=== PATIENT | female | born 1990 | race Caucasian/White ===

== ENCOUNTER 2017-03-21 17:38 | Emergency (ER) | payer OTHER ==
[2017-03-21 18:32] VITALS: BP 120/68; PULSE 80; RESP 18; TEMP 97.9
--- NOTE | 2017-03-21 19:10 | ED ---
Lower Extremity Injury HPI - General Chief Complaint: Extremity Injury, Lower Stated Complaint: hip pain Time Seen by Provider: 03/21/17 19:02 Source: patient, RN notes reviewed Mode of arrival: ambulatory - History of Present Illness Initial Comments: 26-year-old female presents emergency Department chief complaint low back pain, left hip pain. She states been present for 2 months seems to come and go. It is exacerbated by movement. Patient states that the pain sometimes radiates down her leg. Denies any paresthesias denies any bowel bladder incontinence or retention. States that she does do a large amount of exercising and she was doing some outdoor activities as we can which seemed exacerbated. She states that massage made it feel worse. Patient denies any dysuria or hematuria. - Related Data Previous Rx's Medication Instructions Recorded Cephalexin [Keflex] 500 mg PO Q12HR 7 Days 09/19/16 Acetaminophen-Codeine 300-30mg 1 tab PO Q4H PRN #20 tablet 03/21/17 [Tylenol #3] Cyclobenzaprine [Flexeril] 5 mg PO TID PRN #15 tablet 03/21/17 Allergies Allergy/AdvReac Type Severity Reaction Status Date / Time No Known Allergies Allergy Verified 03/21/17 18:32 Review of Systems ROS Statement: Those systems with pertinent positive or pertinent negative responses have been documented in the HPI. ROS Other: All systems not noted in ROS Statement are negative. Past Medical History Past Medical History: No Reported History History of Any Multi-Drug Resistant Organisms: None Reported Past Surgical History: Section Past Psychological History: No Psychological Hx Reported Smoking Status: Current every day smoker Past Alcohol Use History: None Reported Past Drug Use History: None Reported General Exam General appearance: alert, in no apparent distress Neck exam: Present: normal inspection. Absent: tenderness, meningismus, lymphadenopathy Respiratory exam: Present: normal lung sounds bilaterally. Absent: respiratory distress, wheezes, rales, rhonchi, stridor Cardiovascular Exam: Present: regular rate, normal rhythm, normal heart sounds. Absent: systolic murmur, diastolic murmur, rubs, gallop, clicks GI/Abdominal exam: Present: soft, normal bowel sounds. Absent: distended, tenderness, guarding, rebound, rigid Back exam: Present: full ROM, tenderness (Left low back), paraspinal tenderness. Absent: vertebral tenderness Neurological exam: Present: alert, oriented X3, CN II-XII intact, reflexes normal. Absent: motor sensory deficit Course Vital Signs 03/21/17 18:27 Temperature 97.9 F Pulse Rate 80 Respiratory 18 Rate Blood Pressure 120/68 O2 Sat by Pulse 97 Oximetry Medical Decision Making - Medical Decision Making 26-year-old female presented emergency department for low back pain. Patient has lumbar radicular pain. Patient's of pain medication and muscle relaxers. He did discuss stretching. Return parameters were discussed. Disposition Clinical Impression: Lumbar pain, Lumbar radicular pain Disposition: HOME SELF-CARE Condition: Stable Instructions: Lumbar Radiculopathy (ED), Lower Back Exercises (ED) Additional Instructions: Please return to the Emergency Department if symptoms worsen or any other concerns. Prescriptions: Acetaminophen-Codeine 300-30mg [Tylenol #3] 1 tab PO Q4H PRN #20 tablet PRN Reason: pain Cyclobenzaprine [Flexeril] 5 mg PO TID PRN #15 tablet PRN Reason: Muscle Spasm Referrals: None,Stated [Primary Care Provider] - 1-2 days Time of Disposition: 19:10
== END 2017-03-21 19:20 | disposition home or self-care (01) ==
LOC: EC 17:38
DX: M54.16 Radiculopathy, lumbar region (principal); F17.200 Nicotine dependence, unspecified, uncomplicated
CPT/HCPCS: 99283

== ENCOUNTER 2018-12-12 13:19 | Emergency (ER) | payer OTHER ==
[2018-12-12 13:32] VITALS: RESP 18
--- NOTE | 2018-12-12 15:23 | XR ---
Left knee HISTORY: Trauma and pain 4 views of the left knee Bone mineralization, joint spaces and alignment are maintained. No fracture or dislocation. No eviden t joint effusion. IMPRESSION: Normal left knee. Consider knee MRI.
--- NOTE | 2018-12-12 16:37 | ED ---
General Adult HPI - General Chief complaint: Extremity Problem,Nontraumatic Stated complaint: lt knee injury Time Seen by Provider: 12/12/18 15:56 Source: patient, RN notes reviewed, old records reviewed Mode of arrival: ambulatory Limitations: no limitations - History of Present Illness Initial comments: 28-year-old female patient with past history of lower back pain presents to ED with 4 days of knee pain. Patient reports that she has been extremely active during this time, including doing tenderness weakly, moving heavy tables. Patient denies acute injury. Patient primarily has pain and quadriceps tendon. Patient ambulatory. Patient denies any other complaints. Patient denies fevers and chills, nausea or diarrhea. Systemic: Pt denies fatigue, myalgia, fever/chills, rash. Pt denies weakness, night sweats, weight loss. Neuro: Pt denies headache, visual disturbances, syncope or pre-syncope. HEENT: Pt denies ocular discharge or irritation, otalgia, rhinorrhea, pharyngitis or notable lymphadenopathy. Cardiopulmonary: Pt denies chest pain, SOB, heart palpitations, dyspnea on exertion. Abdominal/GI: Pt denies abdominal pain, n/v/d. : Pt denies dysuria, burning w/ urination, frequency/urgency. Denies new onset urinary or bowel incontinence. Neuro: Pt denies new onset weakness, paresthesias. - Related Data Previous Rx's Medication Instructions Recorded Cephalexin [Keflex] 500 mg PO Q12HR 7 Days cap 09/19/16 Acetaminophen-Codeine 300-30mg 1 tab PO Q4H PRN #20 tablet 03/21/17 [Tylenol #3] Cyclobenzaprine [Flexeril] 5 mg PO TID PRN #15 tablet 03/21/17 Allergies Allergy/AdvReac Type Severity Reaction Status Date / Time No Known Allergies Allergy Verified 12/12/18 13:32 Review of Systems ROS Statement: Those systems with pertinent positive or pertinent negative responses have been documented in the HPI. ROS Other: All systems not noted in ROS Statement are negative. Past Medical History Past Medical History: No Reported History History of Any Multi-Drug Resistant Organisms: None Reported Past Surgical History: Section Past Psychological History: No Psychological Hx Reported Smoking Status: Former smoker Past Alcohol Use History: None Reported Past Drug Use History: None Reported General Exam - General Exam Comments Initial Comments: Constitutional: NAD, AOX3, Pt has pleasant affect. HEENT: NC/AT, trachea midline, neck supple, no lymphadenopathy. Posterior pharynx non erythematous, without exudates. External ears appear normal, without discharge. Mucous membranes moist. Eyes PERRLA, EOM intact. There is no scleral icterus. No pallor noted. Cardiopulmonary: RRR, no murmurs, rubs or gallops, no JVD noted. Lungs CTAB in anterior and posterior [place]. No peripheral edema. Abdominal exam: Abdomen soft and non-distended. Abdomen non-tender to palpation in all 4 quadrants. Bowel sounds active in LLQ. No hepatosplenomegaly. No ecchymosis Neuro: CN II-XII grossly intact. No nuchal rigidity. MSK: Patient does have full active range of motion of left knee. However she does have some pain with range of motion. Patient is ambulatory without difficulty. Patient has some tenderness at the patellar tendon. No erythema. Patient is neurovascularly intact. Sensation intact, posterior tibialis pulse + 2 bilaterally. No posterior calf tenderness bilaterally, homans sign negative bilaterally. radial pulse +2 bilaterally. Sensation intact in upper and lower extremities. Full active ROM in upper and lower extremities, 5/5 stregnth. Limitations: no limitations Course Vital Signs 12/12/18 13:30 Temperature 98.1 F Pulse Rate 68 Respiratory 18 Rate Blood Pressure 127/78 O2 Sat by Pulse 98 Oximetry Medical Decision Making - Medical Decision Making 28-year-old female patient presents to ED with 4 days of left knee pain. Patient vital signs stable, afebrile. Physical exam revealed some tenderness at left patellar tendon. Full active range of motion, patient laboratory. Plain films of left did not display any acute process. Patient diagnosed with knee sprain. Patient to use Tylenol/Motrin as needed for pain and inflammation. Patient to follow-up with primary care provider and orthopedic consult 1-2 days. Case discussed with Dr. Pennington. Disposition Clinical Impression: Left knee sprain Disposition: HOME SELF-CARE Condition: Stable Instructions (If sedation given, give patient instructions): Knee Sprain (ED) Additional Instructions: Patient to adhere to previously discussed treatment plan and will take medication(s) as directed. Patient to follow up with PCP in 1-2 days. Patient to return to ED if symptoms do not improve. Is patient prescribed a controlled substance at d/c from ED?: No Referrals: None,Stated [Primary Care Provider] - 1-2 days David Starks MD [STAFF PHYSICIAN] - 1-2 days Time of Disposition: 16:36
[2018-12-12 16:51] VITALS: BP 125/80; PULSE 72; TEMP 98.3
== END 2018-12-12 16:50 | disposition home or self-care (01) ==
LOC: EC 13:19
DX: S83.92XA Sprain of unspecified site of left knee, initial encounter (principal); Z87.891 Personal history of nicotine dependence; X50.9XXA Other and unspecified overexertion or strenuous movements or postures, initial encounter
CPT/HCPCS: 99284